=== PATIENT | female | born 1950 | race Caucasian/White ===

== ENCOUNTER → 2025-06-19 | Outpatient (CLI) | payer MEDICARE, BC | LOC: M WUC 09:40 | PROVIDERS: ATTEND Physician Assistant | DX: M79.631 Pain in right forearm (principal); S41.111A Laceration without foreign body of right upper arm, initial encounter; X58.XXXA Exposure to other specified factors, initial encounter; Y92.9 Unspecified place or not applicable; Y93.9 Activity, unspecified; Y99.9 Unspecified external cause status ==